=== PATIENT | male | born 2000 | race Caucasian/White ===

== ENCOUNTER 2020-12-22 02:54 | Emergency (ER) | payer BC ==
[~2020-12-22] VITALS: Ht 193 cm; Wt 86.4 kg
[2020-12-22 03:53] VITALS: BP 147/90; PULSE 91; TEMP 98.2
== END 2020-12-22 03:53 | disposition home or self-care (01) ==
LOC: COL.ER 02:54
DX: S02.5XXA Fracture of tooth (traumatic), initial encounter for closed fracture (principal); F17.210 Nicotine dependence, cigarettes, uncomplicated; W01.198A Fall on same level from slipping, tripping and stumbling with subsequent striking against other object, initial encounter